=== PATIENT | male | born 1995 | race Caucasian/White ===

== ENCOUNTER 2020-10-05 02:47 | Emergency (ER) | payer SELFPAY ==
[~2020-10-05] VITALS: Ht 167.6 cm; Wt 86.4 kg
[~2020-10-05 02:47] MED LIST: AMPH12.52 PO; CLON-529 PO; DULO20CA50 PO; TRI150T PO
[2020-10-05] MEDS ORDERED: normal saline 1000ML IV soln IVB ONE ×2 (03:05→04:30)
--- NOTE | 2020-10-05 03:14 | NUR ---
SO officer left bedside. Pt agreed that he would cooperate. Dr. Paris told Pt we will put an iv in him and draw blood and asked Pt if we can do this and he said yes. When attempting to place IV pt wanted me to stop and stated he is scared of needles and that he needs to call his girlfriend. Pt given some time to call his girlfriend. updated of delay.
[2020-10-05 03:39] LABS: PARTIAL THROMBOPLASTIN TIME 27 SECONDS (22-32)
[2020-10-05 03:41] LABS: ALANINE AMINOTRANSFERASE 28 U/L (12-78); ALBUMIN 4.7 G/DL (3.4-5.0); ALBUMIN/GLOBULIN RATIO 1.1 (1.1-1.5); ALKALINE PHOSPHATASE 81 IU/L (46-116); ANION GAP 11 (8-16); ASPARTATE AMINO TRANSFERASE 14 U/L (10-37); BILIRUBIN,TOTAL 0.3 MG/DL (0.1-1.0); BLOOD UREA NITROGEN 16 MG/DL (7-18); BUN/CREATININE RATIO 13.4 (5.4-32.0); CALCIUM 8.8 MG/DL (8.5-10.1); CHLORIDE 105 MMOL/L (99-107); CREATININE 1.19 MG/DL (0.60-1.10); GLUCOSE 162 MG/DL (70-104); POTASSIUM 3.6 MMOL/L (3.5-5.1); SODIUM 142 MMOL/L (135-145); TOTAL CARBON DIOXIDE 25.8 MMOL/L (24-32); eGFR 73 ML/MIN
[2020-10-05 03:42] LABS: BASOPHILS # (AUTO) 0.1 X10'3 (0-0.2); EOSINOPHILS # (AUTO) 0.6 X10'3 (0-0.9); EOSINOPHILS % (AUTO) 7.4 % (0-6); HEMATOCRIT 48.6 % (42.0-52.0); HEMOGLOBIN 16.6 g/dl (14.0-17.9); LYMPHOCYTES # (AUTO) 3.5 X10'3 (1.1-4.8); LYMPHOCYTES % (AUTO) 40.2 % (21-51); MEAN CORPUSCULAR HEMOGLOBIN 31.3 PG (27.0-31.0); MEAN CORPUSCULAR HGB CONC 34.2 g/dL (33.0-36.5); MEAN CORPUSCULAR VOLUME 91.6 FL (78-98); MEAN PLATELET VOLUME 8.8 FL (7.4-10.4); MONOCYTES # (AUTO) 0.6 X10'3 (0-0.9); MONOCYTES % (AUTO) 6.5 % (2-12); NEUTROPHILS % (AUTO) 44.9 % (42-75); PLATELET COUNT 389 X10'3 (140-440); RED CELL DISTRIBUTION WIDTH 12.5 % (11.5-14.5); WHITE BLOOD COUNT 8.8 X10'3 (4.5-11.0)
[2020-10-05 03:44] LABS: ETHANOL 0.221 GM/DL (0.0-0.010); LIPASE 215 U/L (73-393); MAGNESIUM 2.2 MG/DL (1.5-2.4); TROPONIN I < 0.04 NG/ML (0.0-0.05)
[2020-10-05] MEDS ORDERED: diltiazem 5mg/ml 5ml inj. IV ONE (04:10)
--- NOTE | 2020-10-05 04:23 | NUR ---
PT IS CALM AND COOPERATIVE. DR. PLUMMER AT BEDSIDE TO REEVAL. PT TO RECEIVE 1 MORE LITER OF NS. HR NOW 125. DENIES ANY PAIN. DEECLINES A BLANKET AND ANYTHING TO TO EAT OR DRINK.
--- NOTE | 2020-10-05 04:47 | NUR ---
DR. PLUMMER TO ORDER A BETABLOCKER AND A 3RD LITER IV FLUIDS.
[2020-10-05] MEDS ORDERED: metoprolol tartrate 50mg tablet PO ONE (04:55)
[2020-10-05] MEDS ORDERED: LOP12.5T PO (04:55)
[2020-10-05] MEDS ORDERED: metoprolol tartrate 1mg/ml inj IV ONE ×2 (04:55→05:25)
[2020-10-05 05:21] VITALS: BP_DIAS 109
[2020-10-05 05:29] VITALS: BP_SYST 144
== END 2020-10-05 05:36 | disposition home or self-care (01) ==
LOC: ER 02:47
DX: F10.129 Alcohol abuse with intoxication, unspecified (principal); R00.0 Tachycardia, unspecified; F31.9 Bipolar disorder, unspecified; Z56.0 Unemployment, unspecified; Z79.899 Other long term (current) drug therapy; Y90.9 Presence of alcohol in blood, level not specified
CPT/HCPCS: 36415; 80053; 80320; 83690; 83735; 84484; 85025; 85610; 85730; 93005; 96361; 96374; 96375; 99285; J7030; J3490

== ENCOUNTER 2021-03-25 15:00 | Emergency (ER) | payer MEDICAID ==
[~2021-03-25] VITALS: Ht 167.6 cm; Wt 90.0 kg
[~2021-03-25 15:00] MED LIST changes: +LOP12.5T PO
[2021-03-25 15:21] VITALS: BP 138/80
== END 2021-03-25 17:43 | disposition left against medical advice (07) ==
LOC: ER 15:00
DX: M79.602 Pain in left arm (principal); Z53.21 Procedure and treatment not carried out due to patient leaving prior to being seen by health care provider